=== PATIENT | female | born 1965 | race Caucasian/White ===

== ENCOUNTER 2017-05-24 11:11 | Emergency (ER) | payer OTHER ==
[~2017-05-24] VITALS: Ht 152.4 cm; Wt 81.6 kg
--- NOTE | 2017-05-24 11:15 | NUR ---
Patient was seen by MD for c/o abdominal pain. Labs drawn, Iv placed, meds given as ordered.
[2017-05-24] MEDS ORDERED: DICYCLOMINE HCL 20 MG TABLET PO STA (11:24)
[2017-05-24] MEDS ORDERED: FAMOTIDINE. 20 MG/2 ML VIAL IV ONE ×2 (11:30→11:43)
[2017-05-24] MEDS ORDERED: IV NORMAL SALINE 1000 ML BAG IV ONE (11:30)
[2017-05-24] MEDS ORDERED: KETOROLAC TROMETHAMINE 15 MG INJ IV ONE (11:30)
[2017-05-24] MEDS ORDERED: DICYCLOMINE HCL 10 MG/5 ML UDC LIQ ONE ×2 (11:43→11:45)
[2017-05-24] MEDS ORDERED: KETOROLAC TROMETHAMINE 15 MG INJ ONE (11:43)
[2017-05-24] MEDS ORDERED: DICYCLOMINE HCL 10 MG/5 ML UDC LIQ PO ONE (11:45)
[2017-05-24 11:54] LABS: BASOPHILS # (AUTO) 0.1 K/uL (0.0-8.0); BASOPHILS % (AUTO) 0.7 % (0.0-2.0); EOSINOPHILS # (AUTO) 0.1 K/uL (0.0-0.7); EOSINOPHILS % (AUTO) 1.3 % (0.0-7.0); HEMOGLOBIN 14.3 G/DL (12.0-16.0); LYMPHOCYTES # (AUTO) 1.4 K/UL (0.8-4.8); LYMPHOCYTES % (AUTO) 19.5 % (20.5-51.5); MEAN CORPUSCULAR HEMOGLOBIN 30.3 UUG (27.0-31.0); MEAN CORPUSCULAR HGB CONC 34 g/dL (32.0-37.0); MEAN CORPUSCULAR VOLUME 89.1 FL (81.0-99.0); MONOCYTES # (AUTO) 0.3 K/UL (0.1-1.30); MONOCYTES % (AUTO) 3.7 % (0.0-11.0); NEUTROPHILS # (AUTO) 5.4 K/UL (1.8-8.9); NEUTROPHILS % (AUTO) 74.8 % (38.5-71.5); PLATELET COUNT (AUTO) 241 K/UL (150-450); RED BLOOD CELL COUNT(AUTO) 4.71 MIL/UL (4.2-5.4); WHITE BLOOD COUNT (AUTO) 7.3 K/UL (4.0-11.2)
[2017-05-24 12:05] LABS: CREATININE 0.6 mg/dL (0.6-1.3)
[2017-05-24 12:10] LABS: BILIRUBIN,DIRECT 0.2 mg/dL (0.0-0.2); TOTAL PROTEIN, SERUM 7.7 g/dL (6.4-8.2)
--- NOTE | 2017-05-24 12:30 | NUR ---
PATIENT STATES PAIN HAS DIMINISHED.
--- NOTE | 2017-05-24 13:23 | NUR ---
MD WAS AT BEDSIDE SPEAKING TO PATIENT AND FAMILY ABOUT TEST RESULTS AND PLAN. DC, RX AND FOLLOW UP INSTRUCTIONS GIVEN AND EXPLAINED TO PATIENT AND FAMILY WHO STATE THEY UNDERSTAND ALL INSTRUCTIONS.
== END 2017-05-24 13:27 | disposition home or self-care (01) ==
LOC: ER 11:11
DX: K80.50 Calculus of bile duct without cholangitis or cholecystitis without obstruction (principal); Z90.710 Acquired absence of both cervix and uterus; Z88.0 Allergy status to penicillin
CPT/HCPCS: 36415; 71010; 83690; 84703; 85025; 85730; 93005; A4663; J1885; J3490; J7030

== ENCOUNTER 2021-06-18 09:51 | Emergency (ER) | payer OTHER ==
[~2021-06-18] VITALS: Ht 152.4 cm; Wt 81.6 kg
[2021-06-18] MEDS ORDERED: ONDANSETRON 4 MG/2 ML VIAL IV ONE (10:00)
[2021-06-18] MEDS ORDERED: IV NORMAL SALINE 1000 ML BAG IV ONE (10:00)
[2021-06-18] MEDS ORDERED: KETOROLAC TROMETHAMINE 15 MG INJ IVP ONE (10:00)
[2021-06-18] MEDS ORDERED: HYDROMORPHONE 1 MG/1 ML DISP.SYRIN IV ONE (10:00)
--- NOTE | 2021-06-18 10:06 | NUR ---
[employer] WAS ADVISED OF ORDER FOR [employer]. HE IS ON HIS WAY, AND WILL BE HERE IN ABOUT 20 MINUTES.
[2021-06-18] MEDS ORDERED: KETOROLAC TROMETHAMINE 30 MG INJ ONE (10:16)
[2021-06-18] MEDS ORDERED: HYDROMORPHONE 1 MG/1 ML DISP.SYRIN ONE (10:17)
[2021-06-18] MEDS ORDERED: ONDANSETRON 4 MG/2 ML VIAL ONE (10:17)
--- NOTE | 2021-06-18 10:25 | NUR ---
PT IS IN ROOM #2B. DR ALEXANDER EVALUATED THE PT.
[2021-06-18 10:44] LABS: *BILIRUBIN,URIN NEGATIVE (NEGATIVE); *BLOOD, URINE 2+ (NEGATIVE); *CLARITY,URINE CLEAR (CLEAR); *COLOR,URINE YELLOW (YELLOW); *KETONES,URINE 2+ (NEGATIVE); LEUKOCYTE ESTERASE ,URINE NEGATIVE (NEGATIVE); NITRITE, URINE NEGATIVE (NEGATIVE); PH,URINE 7.5 (5.0-8.0); UGLUCOSE NEGATIVE (NEGATIVE)
[2021-06-18 10:58] LABS: MEAN CORPUSCULAR HEMOGLOBIN 31.6 uug (24.7-32.8); MEAN CORPUSCULAR VOLUME 89.3 fL (75.5-95.3); PLATELET COUNT (AUTO) 219 K/uL (179-408)
[2021-06-18 11:07] LABS: BILIRUBIN,DIRECT 0.2 mg/dL (0.0-0.2); BILIRUBIN,TOTAL 1.1 mg/dL (0.2-1.0); CREATININE 0.6 mg/dL (0.6-1.3); POTASSIUM 3.4 mmol/L (3.5-5.1)
[2021-06-18] MEDS ORDERED: IV NORMAL SALINE 250 ML IV ONE (11:24)
[2021-06-18] MEDS ORDERED: IOHEXOL 300MG/ML 100 ML INFUS..BTL ONE (11:24)
[2021-06-18] MEDS ORDERED: SWABABLE VALVE TRANSFER SET EA MC ONE (11:24)
[2021-06-18] MEDS ORDERED: POTASSIUM CHLORIDE 20 MEQ TAB.PRT.SR PO ONE (11:30)
[2021-06-18] MEDS ORDERED: IBUP-1957 PO (12:31)
[2021-06-18] MEDS ORDERED: ONDA4TAB11 PO (12:31)
[2021-06-18] MEDS ORDERED: HYDR-4209 PO (12:31)
[2021-06-18] MEDS ORDERED: CIPR-262 PO (12:31)
[2021-06-18] MEDS ORDERED: METR-147 PO (12:31)
[2021-06-18] MEDS ORDERED: POTASSIUM CHLORIDE 20 MEQ TAB.PRT.SR ONE (13:06)
--- NOTE | 2021-06-18 13:25 | NUR ---
PT WAS D/C'd TO HOME. D/C INSTRUCTIONS GIVEN TO THE PT BY DR ALEXANDER.
[2021-06-18 13:27] VITALS: BP 141/79
[2021-06-18 15:31] LABS: BACTERIA,URINE NONE SEEN /HPF (NONE SEEN); SQUAMOUS EPITHELIAL CELL,UR FEW /HPF (NONE SEEN); URINE AMORPHOUS PHOSPHATES MANY /HPF
== END 2021-06-18 13:27 | disposition home or self-care (01) ==
LOC: ER 09:51
DX: K80.20 Calculus of gallbladder without cholecystitis without obstruction (principal); E87.6 Hypokalemia; K52.9 Noninfective gastroenteritis and colitis, unspecified; E66.9 Obesity, unspecified; Z68.35 Body mass index [BMI] 35.0-35.9, adult; Z88.0 Allergy status to penicillin; Z20.822 Contact with and (suspected) exposure to COVID-19; R00.1 Bradycardia, unspecified
CPT/HCPCS: 36415; 70030-TC; 83690; 85025; 93005; A4663; J1170; J1885; J2405; J7030; J7050; Q9967

== ENCOUNTER 2023-12-01 13:39 | Emergency (ER) | payer OTHER ==
[~2023-12-01] VITALS: Ht 152.4 cm; Wt 80.3 kg
[~2023-12-01 13:39] MED LIST: CIPR-262 PO; HYDR-4209 PO; IBUP-1957 PO; METR-147 PO; ONDA4TAB11 PO
[2023-12-01 15:07] LABS: *BILIRUBIN,URIN NEGATIVE (NEGATIVE); *BLOOD, URINE 2+ (NEGATIVE); *CLARITY,URINE CLEAR (CLEAR); *COLOR,URINE YELLOW (YELLOW); *KETONES,URINE NEGATIVE (NEGATIVE); *PROTEIN,URINE NEGATIVE (NEGATIVE); *UROBILINOGEN,URINE 0.2 E.U./dl (NORMAL); LEUKOCYTE ESTERASE ,URINE NEGATIVE (NEGATIVE); NITRITE, URINE NEGATIVE (NEGATIVE); PH,URINE 5.5 (5.0-8.0); UGLUCOSE NEGATIVE (NEGATIVE)
[2023-12-01 15:29] LABS: ALANINE AMINOTRANSFERASE 63 U/L (14-59); ALBUMIN 4.1 g/dL (3.4-5.0); ALKALINE PHOSPHATASE 86 U/L (50-136); ASPARTATE AMINOTRANSFERASE 38 U/L (15-37); BILIRUBIN,DIRECT 0.2 mg/dL (0.0-0.2); BILIRUBIN,TOTAL 1.1 mg/dL (0.2-1.0); CALCIUM 8.7 mg/dL (8.5-10.1); CARBON DIOXIDE 26 mmol/L (21-32); CHLORIDE 105 mmol/L (98-107); CREATININE 0.7 mg/dL (0.6-1.3); GLUCOSE 100 mg/dL (74-106); LIPASE 52 U/L (16-77); POTASSIUM 3.9 mmol/L (3.5-5.1); SODIUM SERUM 139 mmol/L (136-145); TOTAL PROTEIN, SERUM 7.5 g/dL (6.4-8.2); UREA NITROGEN, BLOOD 15 mg/dL (7-18)
[2023-12-01 15:41] LABS: BASOPHILS # (AUTO) 0.1 K/UL (0.0-0.2); BASOPHILS % (AUTO) 0.8 % (0.0-2.0); EOSINOPHILS # (AUTO) 0.1 K/uL (0.0-0.7); EOSINOPHILS % (AUTO) 2.4 % (0.0-7.0); HEMATOCRIT 41.9 % (31.2-41.9); HEMOGLOBIN 14.8 g/dL (10.9-14.3); LYMPHOCYTES # (AUTO) 1.7 K/uL (0.8-4.8); LYMPHOCYTES % (AUTO) 27.9 % (20.5-51.5); MEAN CORPUSCULAR HEMOGLOBIN 31.3 uug (24.7-32.8); MEAN CORPUSCULAR HGB CONC 35 g/dL (32.3-35.6); MEAN CORPUSCULAR VOLUME 88.5 fL (75.5-95.3); MONOCYTES # (AUTO) 0.3 K/uL (0.1-1.30); MONOCYTES % (AUTO) 5.4 % (0.0-11.0); NEUTROPHILS % (AUTO) 63.5 % (38.5-71.5); PLATELET COUNT (AUTO) 235 K/uL (179-408); RED BLOOD CELL COUNT(AUTO) 4.73 MIL/uL (3.63-4.92); RED CELL DISTRIBUTION WIDTH 12.5 % (12.3-17.7); WHITE BLOOD COUNT (AUTO) 6.3 K/uL (3.8-11.8)
[2023-12-01 15:45] LABS: RBC,URINE 0-3 /HPF (0-3); SQUAMOUS EPITHELIAL CELL,UR FEW /HPF (NONE SEEN); WBC,URINE NONE SEEN /HPF (0-3)
[2023-12-01] MEDS ORDERED: FAMO40TA7 PO (16:07)
[2023-12-01] MEDS ORDERED: SUCR1ORA4 PO (16:07)
[2023-12-01 16:16] VITALS: BP 126/81; O2SAT 100
== END 2023-12-01 16:16 | disposition home or self-care (01) ==
LOC: ER 13:39
DX: R10.13 Epigastric pain (principal); Z79.899 Other long term (current) drug therapy; Z98.890 Other specified postprocedural states; Z88.0 Allergy status to penicillin; Z60.2 Problems related to living alone
CPT/HCPCS: 36415; 71045; 83690; 84484; 85025; A4606; A4663